=== PATIENT | male | born 1980 ===

== ENCOUNTER 2022-09-12 09:42 | Emergency (ER) | payer OTHER ==
[~2022-09-12] VITALS: Ht 177.8 cm; Wt 76.2 kg
--- OUTSIDE RECORDS SUMMARY | 2022-09-12 09:45 | XMS ---
PreManage Notification: VERONICA RAM Security Business Risk Consultant Events No recent Security Events currently on file CRITERIA MET - [facility] - 2 Visits in 30 Days CARE PROVIDERS There are no care providers on record at this time. Dalia has no Care Guidelines for this patient. Arie VISIT COUNT (12 MO.) 2 [facility] [place] [facility] TOTAL 2 NOTE: Visits indicate total known visits. ED/C VISIT TRACKING (12 MO.) 09/12/2022 09:43 [facility] [place] TYPE: Emergency COMPLAINT: - TESTICULAR PAIN 08/29/2022 16:10 [facility] [place] TYPE: Emergency COMPLAINT: - HEADACHE INPATIENT VISIT TRACKING (12 MO.) No inpatient visits to display in this time frame [id number]
[2022-09-12] MEDS ORDERED: LEVOFLOXACIN500 MG PO (12:19)
== END 2022-09-12 13:07 | disposition home or self-care (01) ==
LOC: ED 09:42
DX: N45.1 Epididymitis (principal)
CPT/HCPCS: 76870; 81003; 96372; 99284-25; J0696

== ENCOUNTER 2022-10-10 02:17 | Emergency (ER) | payer OTHER ==
[~2022-10-10] VITALS: Ht 177.8 cm; Wt 88.0 kg
[~2022-10-10 02:17] MED LIST: LEVOFLOXACIN500 MG PO
--- OUTSIDE RECORDS SUMMARY | 2022-10-10 02:21 | XMS ---
PreManage Notification: VERONICA RAM Security Seat Cover Cutter Events No recent Security Events currently on file CRITERIA MET - [facility] - [facility] - 2 Visits in 30 Days CARE PROVIDERS -, Yaya- Dentist: Timber Estimator [facility] PHONE: [phone] Dalia has no Care Guidelines for this patient. [facility] 3 [facility] TOTAL 6 NOTE: Visits indicate total known visits. ED/UCC VISIT TRACKING (12 MO.) 10/10/2022 02:17 [facility] [place] TYPE: Emergency COMPLAINT: - LOW BACK PAIN 09/12/2022 09:43 [facility] [place] TYPE: Emergency COMPLAINT: - TESTICULAR PAIN DIAGNOSES: - Left testicular pain - Epididymitis 08/29/2022 16:10 [facility] [place] TYPE: Emergency COMPLAINT: - HEADACHE 08/23/2022 08:28 [facility] [place] TYPE: Emergency COMPLAINT: - AMB CP DIAGNOSES: - Contact with and (suspected) exposure to COVID-19 - Right upper quadrant pain - Right upper quadrant pain - Left upper quadrant pain 05/26/2022 12:15 [facility] [place] TYPE: Emergency COMPLAINT: - FB L EYE DIAGNOSES: - Foreign body in cornea, left eye, initial encounter - Injury of conjunctiva and corneal abrasion without foreign body, left eye, initial encounter - Other foreign body or object entering through skin, initial encounter 03/15/2022 21:13 [facility] TYPE: Emergency COMPLAINT: - Chest Pain DIAGNOSES: - Chest pain, unspecified - Chest Pain INPATIENT VISIT TRACKING (12 MO.) No inpatient visits to display in this time frame [id number]
[2022-10-10] MEDS ORDERED: BIKTARVY 50-201 EACH PO (02:25)
[2022-10-10] MEDS ORDERED: MELOXICAM15 MG PO (03:20)
[2022-10-10] MEDS ORDERED: CYCLOBENZAPRINE10 MG PO (03:20)
== END 2022-10-10 04:04 | disposition home or self-care (01) ==
LOC: ED 02:17
DX: M54.16 Radiculopathy, lumbar region (principal)
CPT/HCPCS: 72100; A9270; J1885; J3360

== ENCOUNTER 2022-11-24 04:52 | Emergency (ER) | payer OTHER ==
[~2022-11-24] VITALS: Ht 177.8 cm; Wt 81.2 kg
[~2022-11-24 04:52] MED LIST changes: +ADDERALL XR 2525 MG PO; +BIKTARVY 50-201 EACH PO; +CYCLOBENZAPRINE10 MG PO; +MELOXICAM15 MG PO
--- OUTSIDE RECORDS SUMMARY | 2022-11-24 04:54 | XMS ---
PreManage Notification: VERONICA RAM Security Laminating Machine Operator Helper Events No recent Security Events currently on file CRITERIA MET - 6 ED Visits in 6 Months - [facility] - [facility] - 2 Visits in 30 Days CARE PROVIDERS -Yaya- Dentist: Automation Technologist [facility] PHONE: [phone] LEXIE MEJIA Internal Medicine Current YENI PHONE: [phone] [facility] \T\ Medical Supplies Current MEDICAL PHONE: [phone] Dalia has no Care Guidelines for this patient. E.D. VISIT COUNT (12 MO.) 1 [facility] H. 2 [facility] 5 [facility] TOTAL 8 NOTE: Visits indicate total known visits. ED/UCC VISIT TRACKING (12 MO.) 11/24/2022 04:53 [facility] [place] TYPE: Emergency COMPLAINT: - SORE THROAT 11/03/2022 08:10 [facility] [place] TYPE: Emergency COMPLAINT: - HEADACHE DIAGNOSES: - Headache, unspecified - Pain, unspecified - Struck by dog, initial encounter - Other long term care phlebotomist (current) drug therapy 10/10/2022 02:17 [facility] [place] TYPE: Emergency COMPLAINT: - LOW BACK PAIN DIAGNOSES: - Low back pain, unspecified - Radiculopathy, lumbar region 09/12/2022 09:43 [facility] [place] TYPE: Emergency COMPLAINT: - TESTICULAR PAIN DIAGNOSES: - Epididymitis - Left testicular pain 08/29/2022 16:10 [facility] [place] TYPE: Emergency COMPLAINT: - HEADACHE 08/23/2022 08:28 [facility] [place] TYPE: Emergency COMPLAINT: - AMB CP DIAGNOSES: - Right upper quadrant pain - Right upper quadrant pain - Left upper quadrant pain - Contact with and (suspected) exposure to COVID-19 05/26/2022 12:15 [facility] [place] TYPE: Emergency COMPLAINT: - FB L EYE DIAGNOSES: - Injury of conjunctiva and corneal abrasion without foreign body, left eye, initial encounter - Other foreign body or object entering through skin, initial encounter - Foreign body in cornea, left eye, initial encounter 03/15/2022 21:13 [facility] TYPE: Emergency COMPLAINT: - Chest Pain DIAGNOSES: - Chest Pain - Chest pain, unspecified INPATIENT VISIT TRACKING (12 MO.) No inpatient visits to display in this time frame [id number]
[2022-11-24] MEDS ORDERED: DEXTROAMP-AMPHE30 MG PO (05:02)
[2022-11-24 06:25] VITALS: BP 119/82
== END 2022-11-24 06:26 | disposition home or self-care (01) ==
LOC: ED 04:52
DX: J02.8 Acute pharyngitis due to other specified organisms (principal); B97.89 Other viral agents as the cause of diseases classified elsewhere; Z20.822 Contact with and (suspected) exposure to COVID-19; Z21 Asymptomatic human immunodeficiency virus [HIV] infection status; Z79.899 Other long term (current) drug therapy
CPT/HCPCS: 87081; 87502; 87880; 99283; C9803; U0003

== ENCOUNTER 2023-04-12 11:56 | Emergency (ER) | payer OTHER ==
[~2023-04-12] VITALS: Ht 177.8 cm; Wt 89.7 kg
[~2023-04-12 11:56] MED LIST changes: +DEXTROAMP-AMPHE30 MG PO
--- OUTSIDE RECORDS SUMMARY | 2023-04-12 11:58 | XMS ---
PreManage Notification: VERONICA RAM Security Newscast Director Events No recent Security Events currently on file CRITERIA MET - [facility] CARE PROVIDERS -, Yaya- Dentist: Case Preparer And Liner [facility] PHONE: [phone] LEXIE MEJIA Internal Medicine Current YENI PHONE: Unknown ESTEPHANIA [facility] Durable Medical Equipment \T\ Medical Supplies Current MEDICAL PHONE: [phone] Dalia has no Care Guidelines for this patient. E.D. VISIT COUNT (12 MO.) 7 [facility] TOTAL 9 NOTE: Visits indicate total known visits. ED/UCC VISIT TRACKING (12 MO.) 04/12/2023 11:57 [facility] [place] TYPE: Emergency COMPLAINT: - HEADACHE 02/10/2023 05:21 [facility] [place] TYPE: Emergency COMPLAINT: - HEADACHE 36 HOURS DIAGNOSES: - Headache, unspecified - Other terminal superintendent (current) drug therapy - Panic disorder [episodic paroxysmal anxiety] 11/24/2022 04:53 [facility] [place] TYPE: Emergency COMPLAINT: - SORE THROAT DIAGNOSES: - Acute pharyngitis due to other specified organisms - Acute pharyngitis, unspecified - Contact with and (suspected) exposure to COVID-19 - Other jail (current) drug therapy - Other viral agents as the cause of diseases classified elsewhere 11/03/2022 08:10 [facility] [place] TYPE: Emergency COMPLAINT: - HEADACHE DIAGNOSES: - Headache, unspecified - Other terminal superintendent (current) drug therapy - Pain, unspecified - Struck by dog, initial encounter 10/10/2022 02:17 [facility] [place] TYPE: Emergency [...] with and (suspected) exposure to COVID-19 - Left upper quadrant pain - Right upper quadrant pain - Right upper quadrant pain 05/26/2022 12:15 [facility] [place] TYPE: Emergency COMPLAINT: - FB L EYE DIAGNOSES: - Foreign body in cornea, left eye, initial encounter - Injury of conjunctiva and corneal abrasion without foreign body, left eye, initial encounter - Other foreign body or object entering through skin, initial encounter INPATIENT VISIT TRACKING (12 MO.) No inpatient visits to display in this time frame [id number]
[2023-04-12] MEDS ORDERED: CYCLOBENZAPRINE10 MG PO (13:09)
[2023-04-12 13:39] VITALS: BP 136/74
== END 2023-04-12 13:40 | disposition home or self-care (01) ==
LOC: ED 11:56
DX: G44.209 Tension-type headache, unspecified, not intractable (principal); Z21 Asymptomatic human immunodeficiency virus [HIV] infection status
CPT/HCPCS: 99283; A9270

== ENCOUNTER 2023-06-21 12:42 | Emergency (ER) | payer OTHER ==
[~2023-06-21] VITALS: Ht 177.8 cm; Wt 91.0 kg
[~2023-06-21 12:42] MED LIST changes: +SEROQUEL50 MG PO
--- OUTSIDE RECORDS SUMMARY | 2023-06-21 12:45 | XMS ---
PreManage Notification: VERONICA RAM Security Folder Gluer Operator Events No recent Security Events currently on file CRITERIA MET - [facility] CARE PROVIDERS -, Yaya- Dentist: Irrigation Technician [facility] PHONE: [phone] LEXIE MEJIA Internal Medicine Current YENI PHONE: Unknown ESTEPHANIA [facility]CON[facility] Durable Medical Equipment \T\ Medical Supplies Current MEDICAL PHONE: [phone] Dalia has no Care Guidelines for this patient. E.D. VISIT COUNT (12 MO.) 9 [facility] TOTAL 10 NOTE: Visits indicate total known visits. ED/UCC VISIT TRACKING (12 MO.) 06/21/2023 12:42 [facility] [place] TYPE: Emergency COMPLAINT: - COLD SYMPTOMS 04/18/2023 04:11 [facility] [place] TYPE: Emergency COMPLAINT: - POSS PANIC ATTACK DIAGNOSES: - Anxiety disorder, unspecified - Insomnia, unspecified - Other terminal gauger supervisor (current) drug therapy 04/12/2023 11:57 [facility] [place] TYPE: Emergency COMPLAINT: - HEADACHE DIAGNOSES: - Headache, unspecified - Tension-type headache, unspecified, not intractable 02/10/2023 05:21 [facility] [place] TYPE: Emergency COMPLAINT: - HEADACHE 36 HOURS DIAGNOSES: - Headache, unspecified - Other skilled nursing (current) drug therapy - Panic disorder [episodic paroxysmal anxiety] 11/24/2022 04:53 [facility] [place] TYPE: Emergency COMPLAINT: - SORE THROAT DIAGNOSES: - Acute pharyngitis due to other specified organisms - Acute pharyngitis, unspecified - Contact with and (suspected) exposure to COVID-19 - Other skilled nursing (current) drug therapy - Other viral agents as the cause of diseases classified elsewhere 11/03/2022 08:10 [facility] [place] TYPE: Emergency COMPLAINT: - HEADACHE DIAGNOSES: - Headache, unspecified - Other skilled nursing (current) drug therapy - Pain, unspecified - Struck by dog, initial encounter 10/10/2022 02:17 [facility] [place] TYPE: Emergency COMPLAINT: - LOW BACK PAIN DIAGNOSES: - Low back pain, unspecified - Radiculopathy, lumbar region 09/12/2022 09:43 [facility] [place] TYPE: Emergency COMPLAINT: - TESTICULAR PAIN DIAGNOSES: - Epididymitis - Left testicular pain 08/29/2022 16:10 [facility] [place] TYPE: Emergency COMPLAINT: - HEADACHE 08/23/2022 08:28 [facility] [place] TYPE: Emergency COMPLAINT: - AMB CP DIAGNOSES: - Contact with and (suspected) exposure to COVID-19 - Left upper quadrant pain - Right upper quadrant pain - Right upper quadrant pain INPATIENT VISIT TRACKING (12 MO.) No inpatient visits to display in this time frame [id number]
[2023-06-21 13:46] LABS: INFLUENZA B NAA NEGATIVE (NEGATIVE); RESPIRATORY SYNCYTIAL VIR NAA NEGATIVE (NEGATIVE)
[2023-06-21 14:17] VITALS: BP 149/85
== END 2023-06-21 14:18 | disposition home or self-care (01) ==
LOC: ED 12:42
PROVIDERS: Emergency Medicine
DX: J06.9 Acute upper respiratory infection, unspecified (principal); Z20.822 Contact with and (suspected) exposure to COVID-19; Z79.899 Other long term (current) drug therapy
CPT/HCPCS: 87502; 99283; C9803; U0002

== ENCOUNTER 2024-07-03 18:01 | Emergency (ER) | payer OTHER ==
[~2024-07-03] VITALS: Ht 177.8 cm; Wt 86.0 kg
[~2024-07-03 18:01] MED LIST changes: +ESCITALOPRAM OXA5 MG PO; +LISDEXAMFETAMIN30 MG PO; +ONDANSETRON ODT8 MG PO; +ROSUVASTATIN CAL5 MG PO; +TADALAFIL20 M1 PO
--- OUTSIDE RECORDS SUMMARY | 2024-07-03 18:07 | XMS ---
PreManage Notification: VERONICA RAM Security Gasoline Attendant Events No recent Security Events currently on file CRITERIA MET - [facility] - 2 Visits in 30 Days CARE PROVIDERS -, [facility] Dentist: Spike Machine Operator Current Yaya PHONE: [phone] -Yaya- Dentist: Spike Machine Operator Current [facility] PHONE: [phone] LEXIE MEJIA Internal Medicine [place] PHONE: [phone] CHAKA OCONNOR Durable Medical Equipment \T\ Medical Current MEDICAL Supplies PHONE: [phone] KANDACE LANGFORD [facility] Current PHONE: [phone] Dalia has no Care Guidelines for this patient. Arie VISIT COUNT (12 MO.) [address] [facility] TOTAL 4 NOTE: Visits indicate total known visits. ED/UCC VISIT TRACKING (12 MO.) 07/03/2024 18:[address] [facility] [place] TYPE: Emergency COMPLAINT: - CHEST PAIN/LEG SWELLING 06/30/2024 15:[address] [facility] [place] TYPE: Emergency COMPLAINT: - RECTAL BLEED 12/30/2023 13:[address] [facility] [address] [facility] [place] TYPE: Emergency COMPLAINT: - DEHYDRATED, VOMITING DIAGNOSES: - Anxiety disorder, unspecified - Noninfective gastroenteritis and colitis, unspecified - Other usp (current) drug therapy - Unspecified abdominal pain 11/10/2023 15:[address] [facility] [address] [facility] [place] TYPE: Emergency COMPLAINT: - HEAD INJURY DIAGNOSES: - Anxiety disorder, unspecified - Contusion of scalp, initial encounter - Other laborer marine terminal (current) drug therapy - Striking against or struck by other objects, initial encounter - Unspecified injury of head, initial encounter INPATIENT VISIT TRACKING (12 MO.) No inpatient visits to display in this time frame [id number]
[2024-07-03] MEDS ORDERED: ASPIRIN 81 MG CHEW PO ONE (18:15)
[2024-07-03] MEDS ORDERED: LORAZEPAM0.5 MG PO (18:15)
[2024-07-03] MEDS ORDERED: DOXYCYCLINE MO100 MG PO (18:15)
[2024-07-03 18:57] LABS: BASOPHILS 1.3 % (0-2); EOSINOPHILS 1.4 % (0-6); HEMATOCRIT 37.7 % (35.0-50.0); HEMOGLOBIN 12.6 g/dL (12.0-18.0); LYMPHOCYTES 41.9 % (24-44); MCH 31.2 (27-36); MCHC 33.5 g/dl (30-36); MCV 93.2 fl (81-99); MONOCYTES 7.5 % (0-12); NEUTROPHILS 47.9 % (39-80); PLATELET COUNT 265 K/uL (140-440); RBC 4.04 M/ul (4.3-5.7)
[2024-07-03 19:15] LABS: ALBUMIN 3.3 g/dL (3.4-5.0); ALBUMIN/GLOBULIN RATIO 0.94 (1.1-2.4); ALKALINE PHOSPHATASE 85 U/L (46-116); ALT (SGPT) 82 U/L (14-59); ANION GAP 10.3 (7-21); AST (SGOT) 23 U/L (15-37); BILIRUBIN, TOTAL 0.4 ng/dL (0.2-1.0); BUN/CREATININE RATIO 11.21 (6.0-28.6); CALCIUM 9.3 mg/dL (8.5-10.1); CARBON DIOXIDE 29 mmol/L (21-32); CHLORIDE 106 mmol/L (98-107); CREATININE, SERUM 1.07 mg/dL (0.70-1.30); GLOMERULAR FILTRATION RATE,EST 89 mL/min (>60); POTASSIUM 4.3 mmol/L (3.5-5.1); PROTEIN, TOTAL 6.8 g/dL (6.4-8.2); UREA NITROGEN 12 mg/dL (7-18)
--- NOTE | 2024-07-03 19:28 | EKG ---
[facility] [address] [facility] [place] [address] Signed Normal sinus rhythm with sinus arrhythmia Incomplete right bundle branch block Borderline ECG No previous ECGs available Confirmed by Dale Encarnacion MD ([id number]) on 07/03/2024 7:27:58 PM Electronically Signed By: DALE ENCARNACION MD 07/03/241927 PATIENT NAME: VERONICA RAM Electrocardiogram DATE OF : 84 PHYSICIAN: DALE ENCARNACION MD REPORT #: [id number] REPORT IS CONFIDENTIAL AND NOT TO BE RELEASED WITHOUT AUTHORIZATION
[2024-07-03 19:46] VITALS: BP 119/77
== END 2024-07-03 19:46 | disposition home or self-care (01) ==
LOC: ED 18:01
PROVIDERS: Emergency Medicine
DX: K62.5 Hemorrhage of anus and rectum (principal); R60.9 Edema, unspecified; R07.89 Other chest pain; R06.02 Shortness of breath; Z21 Asymptomatic human immunodeficiency virus [HIV] infection status; Z79.899 Other long term (current) drug therapy
CPT/HCPCS: 36415; 71045; 80053; 83735; 83880; 84484; 85025; 93005; 93010; 99285; A9270

== ENCOUNTER 2025-04-05 07:54 | Emergency (ER) | payer OTHER ==
[~2025-04-05] VITALS: Ht 177.8 cm; Wt 90.0 kg
[~2025-04-05 07:54] MED LIST changes: +DOXYCYCLINE MO100 MG PO; +LORAZEPAM0.5 MG PO
--- OUTSIDE RECORDS SUMMARY | 2025-04-05 07:56 | XMS ---
PreManage Notification: VERONICA RAM Security Video Control Operator Events No recent Security Events currently on file CRITERIA MET - Group Notification CARE PROVIDERS -, [facility] Dentist: Supervisor Varnish Current Yaya PHONE: [phone] [facility] PHONE: Unknown Dalia has no Care Guidelines for this patient. Arie VISIT COUNT (12 MO.) [facility] TOTAL 4 NOTE: Visits indicate total known visits. ED/UCC VISIT TRACKING (12 MO.) 04/05/2025 07:55 [facility] [place] TYPE: Emergency COMPLAINT: - TESTICULAR PAIN 01/03/2025 19:57 [facility] [place] TYPE: Emergency COMPLAINT: - GENITAL ISSUES DIAGNOSES: - Anxiety disorder, unspecified - Left testicular pain - Other cash management associate (current) drug therapy 07/03/2024 18:01 [facility] [place] TYPE: Emergency COMPLAINT: - CHEST PAIN/LEG SWELLING DIAGNOSES: - Chest pain, unspecified - Edema, unspecified - Hemorrhage of anus and rectum - Other chest pain - Other half-way (current) drug therapy - Shortness of breath 06/30/2024 15:30 [facility] [place] TYPE: Emergency COMPLAINT: - RECTAL BLEED INPATIENT VISIT TRACKING (12 MO.) No inpatient visits to display in this time frame [id number]
[2025-04-05 08:17] LABS: BLOOD/HGB, URINE SMALL (Negative); KETONE, URINE NEGATIVE (Negative); LEUK ESTERASE, URINE SMALL (negative); NITRITE, URINE NEGATIVE (negative)
[2025-04-05 08:22] LABS: CRYSTALS, URINE NONE SEEN (0-1+); EPITHELIAL CELLS, URINE 0 /lpf (0-1+)
[2025-04-05 08:23] LABS: BACTERIA, URINE 1+ /hpf (negative); CASTS, URINE NONE SEEN \\lpf; REFLEX CULTURE, URINE Yes (No)
[2025-04-05] MEDS ORDERED: ROSUVASTATIN CAL5 MG PO (08:26)
[2025-04-05] MEDS ORDERED: ESCITALOPRAM OXA5 MG PO (08:27)
[2025-04-05] MEDS ORDERED: LORAZEPAM0.5 MG PO (08:27)
[2025-04-05 09:45] LABS: N. GONORRRHOEAE BY PCR DETECTED (NOT DETECT)
[2025-04-05] MEDS ORDERED: CEFTRIAXONE SODIUM 2 GM VIAL IM ONE (10:00)
[2025-04-05 10:32] VITALS: BP 131/84
== END 2025-04-05 10:34 | disposition home or self-care (01) ==
LOC: ED 07:54
PROVIDERS: Emergency Medicine
DX: A54.9 Gonococcal infection, unspecified (principal); B20 Human immunodeficiency virus [HIV] disease; Z79.899 Other long term (current) drug therapy
CPT/HCPCS: 81001; 87088; 96372; 99283; J0696